=== PATIENT | male | born 1975 | race Two or more races ===

== ENCOUNTER 2024-08-21 20:21 | Emergency (ER) | payer OTHER ==
[~2024-08-21] VITALS: Ht 177.8 cm; Wt 77.1 kg
[2024-08-21 20:35] VITALS: BP 145/87; O2SAT 98
[2024-08-21] MEDS ORDERED: CEFTRIAXONE SODIUM 1,000 MG VIAL IV ONE (23:15)
[2024-08-21] MEDS ORDERED: KETOROLAC TROMETHAMINE 60 MG VIAL IM ONE ×2 (23:15→23:27)
[2024-08-21] MEDS ORDERED: TAMSULOSIN HCL 0.4 MG CAP PO ONE ×2 (23:15→23:27)
[2024-08-21] MEDS ORDERED: CEFTRIAXONE SODIUM 1,000 MG VIAL ONE (23:27)
[2024-08-22 00:50] LABS: PH,URINE 5.5 (5.0-8.0); URINE APPEARANCE Turbid; URINE BILIRRUBIN Negative (NEGATIVE); URINE BLOOD Moderate; URINE COLOR Yellow; URINE GLUCOSE Negative (NEGATIVE); URINE KETONE Trace (NEGATIVE); URINE LEUKOCYTE Negative; URINE NITRATE Negative; URINE PROTEIN 30 (NEGATIVE)
[2024-08-22 00:52] LABS: HEMATOCRIT 45.9 % (39.0-48.0); HEMOGLOBIN 15.6 g/dL (13-16.00); MEAN CELL VOLUME 83.1 fL (80.0-100.00); MEAN CORPUSCULAR HEMOGLOBIN 28.2 pg (27.00-32.0); PLATELET COUNT 216 K/uL (150-450); RED BLOOD COUNT 5.53 M/uL (4.00-6.00)
[2024-08-22 00:54] LABS: URINE EPITHELIAL CELLS 2.8 uL (0.0-38.8); URINE RBC 26.6 uL (0.0-20.8); URINE WBC 2.6 uL (0.0-23.2)
[2024-08-22 01:17] LABS: ALBUMIN 4.2 gm/dL (3.4-5.0); BILIRUBIN TOTAL 0.63 mg/dL (0.3-1.2); CALCIUM 8.9 mg/dL (8.5-10.1); CREATININE SERUM 1.76 mg/dL (0.70-1.30); GFR 41.54; GLOBULINA 3.9 G/DL (2.4-3.5); POTASSIUM 4.08 mEq/L (3.5-5.1); TOTAL PROTEIN 8.1 gm/dL (6.4-8.2)
[2024-08-22 01:17] LABS: URINE BACTERIA 2.4 uL (0.0-1933); URINE CAST 0.29 uL (0.0-1.40)
[2024-08-22] MEDS ORDERED: BARIUM SULFATE 450 ML ORAL.SUSP PO ONE (02:19)
[2024-08-22] MEDS ORDERED: CIPRO500 MG PO (07:19)
[2024-08-22] MEDS ORDERED: TAMS0.4C PO ×2 (07:19→07:20)
[2024-08-22] MEDS ORDERED: KETO10TA2 PO (07:19)
== END 2024-08-22 07:30 ==
LOC: ER 20:23
PROVIDERS: General Practice
DX: R10.32 Left lower quadrant pain (principal); K57.32 Diverticulitis of large intestine without perforation or abscess without bleeding; Z88.8 Allergy status to other drugs, medicaments and biological substances; N20.1 Calculus of ureter; K42.9 Umbilical hernia without obstruction or gangrene